=== PATIENT | male | born 1970 | race American Indian/Alaskan Native ===

== ENCOUNTER 2018-01-12 08:34 | Emergency (ER) | payer SELFPAY ==
[2018-01-12] MEDS ORDERED: MOTRIN PO ONE (09:38)
[2018-01-12] MEDS ORDERED: PERCOCET 5/325 PO ONE (09:38)
--- NOTE | 2018-01-12 09:44 | Emergency Department Report ---
ED Upper Extremity Inj HPI - General Chief Complaint: Shoulder Injury Stated Complaint: LEFT SHOULDER PAIN Time Seen by Provider: 01/12/18 09:35 Source: patient Mode of arrival: Ambulatory Limitations: No Limitations - History of Present Illness Initial Comments: Mr. Delgado is a healthy 47-year-old male who injured his left shoulder at work. 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 No previous injury. Moderate pain. No other injury. No paresthesias. MD Complaint: Injury to:: left, shoulder -: Sudden Other Extremity Injury: Fingers: Left, Shoulder: Left Other Injuries: none Place: work Severity scale (0 -10): 6 Worsens With: movement of extremity - Related Data Previous Rx's Medication Instructions Recorded Last Taken Type Ibuprofen 800 mg PO QID 5 Days #20 tablet 01/12/18 Unknown Rx Allergies Allergy/AdvReac Type Severity Reaction Status Date / Time No Known Allergies Allergy Unverified 03/22/16 15:13 ED Review of Systems ROS: Stated complaint: LEFT SHOULDER PAIN Other details as noted in HPI Constitutional: denies: fever, malaise Musculoskeletal: arthralgia Neurological: denies: numbness, paresthesias ED Past Medical Hx - Past Medical History Previous Medical History?: No - Surgical History Past Surgical History?: No Additional Surgical History: hernia repair - Social History Smoking Status: Current Every Day Smoker Substance Use Type: None - Medications Home Medications: Home Medications Medication Instructions Recorded Confirmed Last Taken Type Ibuprofen 800 mg PO QID 5 Days #20 tablet 01/12/18 Unknown Rx ED Physical Exam - General Limitations: No Limitations General appearance: alert, in no apparent distress - Head Head exam: Present: atraumatic, normocephalic - Eye Eye exam: Present: normal appearance - ENT ENT exam: Present: mucous membranes moist - Neck Neck exam: Present: normal inspection, full ROM. Absent: tenderness, meningismus - Respiratory Respiratory exam: Absent: respiratory distress - Expanded Upper Extremity Exam Left Shoulder Exam: Present: normal inspection, tenderness, other (patient is hesitant to range his shoulder). Absent: swelling, abrasion, laceration, ecchymosis, deformity, crepidus, dislocation, erythema, tenderness over AC joint ED Course Vital Signs 01/12/18 08:41 Temperature 98.7 F Pulse Rate 94 H Respiratory 16 Rate Blood Pressure 143/98 O2 Sat by Pulse 98 Oximetry ED Medical Decision Making - Radiology Data Radiology results: image reviewed interpreted by me: No fracture or subluxation no soft tissue swelling - Medical Decision Making Mr. Delgado injured his left shoulder work. I suspect a rotator cuff injury. Recommended rest and time off work. Prescribed ibuprofen. Given sling. Referred to orthopedic surgeon Critical care attestation.: If time is entered above; I have spent that time in minutes in the direct care of this critically ill patient, excluding procedure time. ED Disposition Clinical Impression: Shoulder injury, Work related injury Disposition: DC- TO HOME OR SELFCARE Is pt being admited?: No Does the pt Need Aspirin: No Condition: Stable Instructions: Shoulder Sprain (ED) Prescriptions: Ibuprofen 800 mg PO QID 5 Days #20 tablet Referrals: BOWEN MONTERO MD [Staff Physician] - 3-5 Days Forms: Work/School Release Form(ED)
[2018-01-12 11:10] VITALS: BP 141/94
--- NOTE | 2018-01-12 11:15 | XRay Report ---
FINAL REPORT EXAM: XR SHOULDER 2+V LT HISTORY: trauma, pain TECHNIQUE: Three views of the left shoulder PRIORS: None. FINDINGS: There is no evidence of acute fracture. There is no evidence of joint dislocation. There is no significant focal osseous lesions seen. IMPRESSION: There is no acute abnormality identified.
== END 2018-01-12 11:20 | disposition home or self-care (01) ==
LOC: ED 08:34
DX: S49.92XA Unspecified injury of left shoulder and upper arm, initial encounter (principal); F17.200 Nicotine dependence, unspecified, uncomplicated; W22.8XXA Striking against or struck by other objects, initial encounter; Y93.89 Activity, other specified; Y92.69 Other specified industrial and construction area as the place of occurrence of the external cause; Y99.8 Other external cause status

== ENCOUNTER 2018-05-14 15:31 | Emergency (ER) | payer SELFPAY ==
[2018-05-14 16:26] VITALS: BP 147/101
--- NOTE | 2018-05-14 16:28 | Emergency Department Report ---
Blank Doc - Documentation Documentation: 48 y/o c/o cough and chest congestion wtih phlegm production for the last 2 da ys. chest aches with coughing Plan xray
--- NOTE | 2018-05-14 17:16 | XRay Report ---
FINAL REPORT EXAM: XR CHEST ROUTINE 2V HISTORY: cough and mucus TECHNIQUE: Frontal and lateral chest radiographs. PRIORS: None. FINDINGS: The cardiomediastinal silhouette is normal. No focal consolidation. Mild linear opacities are seen in the lateral aspect of the right lower lung. No pleural effusion. No pneumothorax. No acute osseous abnormality. IMPRESSION: Mild subsegmental atelectasis or scarring in the periphery of the right lower lobe.
--- NOTE | 2018-05-14 20:18 | Emergency Department Report ---
- General Chief Complaint: Upper Respiratory Infection Stated Complaint: BODY ACHE/COUGHING Time Seen by Provider: 05/14/18 16:26 Source: patient Mode of arrival: Ambulatory Limitations: No Limitations - History of Present Illness MD Complaint: fever, cough, rhinorrhea, nasal congestion -: days(s) (2-3) Severity: moderate Quality: sharp, dull, aching Consistency: constant Worsens With: nothing Associated Symptoms: chills, myalgias, rhinorrhea, nasal congestion, sore throat, cough. denies: abdominal pain, nausea, vomiting, right sweats, weight loss, epistaxis Treatments Prior to Arrival: none - Related Data Previous Rx's Medication Instructions Recorded Last Taken Type Ibuprofen 800 mg PO QID 5 Days #20 tablet 01/12/18 Unknown Rx ALBUTEROL Inhaler (OR & NICU) 1 puff IH Q4-6H PRN #1 inha 05/14/18 Unknown Rx [ProAir HFA Inhaler] Azithromycin [Zithromax] 500 mg PO QDAY #5 tablet 05/14/18 Unknown Rx guaiFENesin/CODEINE [Robitussin AC] 5 ml PO Q6H PRN #120 ml 05/14/18 Unknown Rx predniSONE [Deltasone] 20 mg PO QDAY #5 tab 05/14/18 Unknown Rx Allergies Allergy/AdvReac Type Severity Reaction Status Date / Time No Known Allergies Allergy Unverified 03/22/16 15:13 ED Review of Systems ROS: Stated complaint: BODY ACHE/COUGHING Other details as noted in HPI Constitutional: denies: chills, fever Eyes: denies: eye pain, eye discharge, vision change ENT: denies: ear pain, throat pain Respiratory: cough. denies: shortness of breath, wheezing Cardiovascular: denies: chest pain, palpitations Endocrine: no symptoms reported Gastrointestinal: denies: abdominal pain, nausea, diarrhea Genitourinary: denies: urgency, dysuria Musculoskeletal: denies: back pain, joint swelling, arthralgia Skin: denies: rash, lesions Neurological: denies: headache, weakness, paresthesias Psychiatric: denies: anxiety, depression Hematological/Lymphatic: denies: easy bleeding, easy bruising ED Past Medical Hx - Past Medical History Previous Medical History?: No - Surgical History Additional Surgical History: hernia repair - Social History Smoking Status: Current Every Day Smoker Substance Use Type: Alcohol - Medications Home Medications: Home Medications Medication Instructions Recorded Confirmed Last Taken Type Ibuprofen 800 mg PO QID 5 Days #20 tablet 01/12/18 Unknown Rx ALBUTEROL Inhaler (OR & NICU) 1 puff IH Q4-6H PRN #1 inha 05/14/18 Unknown Rx [ProAir HFA Inhaler] Azithromycin [Zithromax] 500 mg PO QDAY #5 tablet 05/14/18 Unknown Rx guaiFENesin/CODEINE [Robitussin AC] 5 ml PO Q6H PRN #120 ml 05/14/18 Unknown Rx predniSONE [Deltasone] 20 mg PO QDAY #5 tab 05/14/18 Unknown Rx ED Physical Exam - General Limitations: No Limitations General appearance: alert, in no apparent distress - Head Head exam: Present: atraumatic, normocephalic - Eye Eye exam: Present: normal appearance, EOMI, conjunctival injection Pupils: Present: normal accommodation - ENT ENT exam: Present: normal exam, normal orophraynx, mucous membranes moist, other (nasal congestion and discharge yellowish) - Neck Neck exam: Present: normal inspection - Respiratory Respiratory exam: Present: normal lung sounds bilaterally, wheezes, rhonchi. Absent: respiratory distress, chest wall tenderness, accessory muscle use, decreased breath sounds - Cardiovascular Cardiovascular Exam: Present: regular rate, normal rhythm. Absent: systolic murmur, diastolic murmur, rubs, gallop - GI/Abdominal GI/Abdominal exam: Present: soft, normal bowel sounds - Rectal Rectal exam: Present: deferred - Extremities Exam Extremities exam: Present: normal inspection - Back Exam Back exam: Present: normal inspection - Neurological Exam Neurological exam: Present: alert, oriented X3 - Psychiatric Psychiatric exam: Present: normal affect, normal mood - Skin Skin exam: Present: warm, dry, intact, normal color. Absent: rash ED Course Vital Signs 05/14/18 16:24 Temperature 99.2 F Pulse Rate 95 H Respiratory 20 Rate Blood Pressure 147/101 O2 Sat by Pulse 96 Oximetry Critical care attestation.: If time is entered above; I have spent that time in minutes in the direct care of this critically ill patient, excluding procedure time. ED Disposition Clinical Impression: Atelectasis of right lung, Cough, Nasal congestion Disposition: - TO HOME OR SELFCARE Is pt being admited?: No Does the pt Need Aspirin: No Condition: Stable Instructions: Antitussive/Decongestant (By mouth), Allergic Rhinitis (ED), Cold Symptoms (ED) Prescriptions: ALBUTEROL Inhaler (OR & NICU) [ProAir HFA Inhaler] 1 puff IH Q4-6H PRN #1 inha PRN Reason: Cough Azithromycin [Zithromax] 500 mg PO QDAY #5 tablet guaiFENesin/CODEINE [Robitussin AC] 5 ml PO Q6H PRN #120 ml PRN Reason: Cough predniSONE [Deltasone] 20 mg PO QDAY #5 tab Referrals: [facility] [Provider Group] - 3-5 Days
== END 2018-05-14 20:25 | disposition home or self-care (01) ==
LOC: ED 15:31
DX: J98.11 Atelectasis (principal); R05 Cough; R09.81 Nasal congestion
CPT/HCPCS: 71046; 99283